=== PATIENT | male | born 1975 | race Caucasian/White ===

== ENCOUNTER 2019-06-28 08:10 | Inpatient (IN) ==
[2019-06-28] MEDS ORDERED: DUONEB (A & A) INH ONE (09:09)
[2019-06-28] MEDS ORDERED: MUCINEX DM PO ONE (09:09)
--- NOTE | 2019-06-28 09:38 | Diag Imaging Result Doc PS360 ---
EXAM: CHEST-2 VIEWS HISTORY: cough TECHNIQUE: Two views COMPARISON: 06/17/2019 FINDINGS: The lungs are well expanded. The heart is not enlarged. The vessels are not distended. There are small patchy infiltrates. No pleural effusions. IMPRESSION: Small patchy infiltrates Electronically signed by Chip Wade 06/28/2019 9:36 AM
--- NOTE | 2019-06-28 09:49 | PROVIDER DOCUMENTATION ---
HPI-General Adult - General Chief Complaint: Cold Symptoms Stated Complaint: COLD SX Time Seen by Provider: 06/28/19 09:02 Source: patient Allergies/Adverse Reactions: Patient Allergies Allergy/AdvReac Type Severity Reaction Status Date / Time Horse/Equine Containing Allergy Unknown Verified 06/28/19 08:48 Products Home Medications: Home Medication List Medication Instructions Recorded Confirmed Last Taken Type Benztropine [Cogentin] 1 mg PO BID 09/20/18 06/28/19 1 Year Ago History ~06/28/18 Lurasidone HCl [Latuda] 60 mg PO DAILY 09/20/18 06/28/19 1 Year Ago History ~06/28/18 Quetiapine E.r. [Seroquel Xr] 600 mg PO PRN PRN 09/20/18 06/28/19 1 Year Ago History ~06/28/18 D-Methorphan/PE/Acetaminophen [Day 1 ea PO QAM PRN 06/28/19 06/28/19 06/28/19 History Time Cold-Flu Softgel] Dextromethorphan HBr [Robitussin] 15 mg PO Q4H PRN 06/28/19 06/28/19 06/28/19 History Dm/Acetaminophen/Doxylamine [Night 1 ea PO QPM PRN 06/28/19 06/28/19 1 Day Ago History Time Cold-Flu Softgel] ~06/27/19 - History of Present Illness -Gen Adult Nature of Presenting Problems: Patient is a 43 yowm who complains of a non-productive cough and chest congestion x 1 week. Denies fever or any other complaints. Pt has been using his roommate's breathing treatments. Denies any hx of asthma or COPD. Denies any other complaints. Review of Systems - Adult - REVIEW OF SYSTEMS - ADULT Constitutional: reports: no symptoms reported. denies: chills, fever Eyes: reports: no symptoms reported Ears, Nose, Mouth & Throat: reports: no symptoms reported Cardiovascular: reports: no symptoms reported Respiratory: reports: see HPI Gastrointestinal: reports: no symptoms reported Genitourinary: reports: no symptoms reported Musculoskeletal: reports: no symptoms reported Integumentary: reports: no symptoms reported Neurological: reports: no symptoms reported Psychiatric: reports: no symptoms reported Endocrine: reports: no symptoms reported Hematologic/Lymphatic: reports: no symptoms reported Allergic/Immunologic: reports: no symptoms reported All Other Systems: Reviewed and Negative Past History - Adult - PAST MEDICAL HISTORY-ADULT Review of Records: reports: Nursing Assessment Review, Medications Reviewed Major Childhood Illnesses: reports: denies history Cardiovascular: reports: denies history Respiratory: reports: denies history Gastrointestinal: reports: denies history Obstetrical/Gynecological: reports: denies history Genitourinary: reports: denies history Musculoskeletal: reports: denies history Neurological: reports: denies history Psychiatric: reports: anxiety, psychiatric problems, schizophrenia Endocrine/Immune: reports: denies history Other Conditions: reports: denies history - PRIOR SURGERIES/PROCEDURES Surgical/Procedure History: reports: none - IMMUNIZATION STATUS Childhood Immunizations: See Nurse Assessment Flu Vaccine: See Nurse Assessment - FAMILY HISTORY Family History: reviewed, not pertinent - SOCIAL HISTORY Smoking: non-smoker Substance Use: marijuana Physical Exam-General - PHYSICAL EXAM-ADULT Initial Vital Signs Reviewed: Yes - CONSTITUTIONAL General Appearance: alert, no apparent distress. negative: lethargic, slow to respond - EYES Eyes: PERRL/EOMI, pink conjunctivae. negative: sclera injected, scleral icte [place], sunken eyes - HEAD, EARS, NOSE, MOUTH & THROAT HENMT: normocephalic/atraumatic, moist mucous membranes, normal ENT inspection, TMs normal, pharynx normal - NECK Neck: non-tender, full range of motion, supple, normal inspection - RESPIRATORY Respiratory: chest non-tender, lungs clear, normal breath sounds, no pleuratic chest pain, no respiratory distress, no accessory muscle use - CARDIOVASCULAR Cardiovascular: normal peripheral pulses, regular rate, rhythm, no gallop, no murmur - GASTROINTESTINAL (ABDOMEN) Abdominal Exam: normal bowel sounds, non tender, soft - MUSCULOSKELETAL Back Exam: normal inspection Extremity: normal range of motion, non-tender, normal gait, normal inspection - SKIN Integumentary: normal color, warm/dry. negative: cyanosis, diaphoresis, jaundice, mottled, pallor - NEUROLOGIC Neurologic: grossly normal, no motor/sensory deficits - PSYCHIATRIC Psych/Mental Status: normal mood/affect, normal thought content, normal thought process, oriented x 3 Progress - PLAN OF CARE/RESULTS Progress/Plan/Lab Results: Vital Signs - 8 hr 06/28/19 08:14 06/28/19 09:45 Temperature 99.0 F Pulse Rate 119 H 119 H Respiratory Rate 20 18 Blood Pressure 136/84 O2 Sat by Pulse Oximetry 93 L 06/28/19 08:45 Influenza Screen - Final Nasopharyngeal Orders Category Date Time Status CHEST-2 VIEWS [RAD] Stat Exams 06/28/19 09:09 Completed INFLUENZA SCREEN A/B Stat Lab 06/28/19 08:45 Completed Albuterol 2.5MG/Ipratrop 0.5MG [Duoneb (A & A)] Med 06/28/19 09:09 Discontin ued 3 ml INH NOW ONE Guaifenesin/Dm E.r. [Mucinex Dm] Med 06/28/19 09:09 Discontinued 1 each PO NOW ONE Aerosol Treatments Routine Oth 06/28/19 09:09 Completed Aerosol Treatments Stat Oth 06/28/19 09:09 Completed Result Diagrams: 06/28/19 10:25 06/28/19 10:25 - REASSESSMENT Reassessment #1 Time Reassessed: 13:11 Status: other (Pt states he is not feeling better after breathing tx, O2 sat 89% on room air after ambulating, admitting HPS paged.) - XRAY 1 XRAY Study: Chest ([facility] - [address] , [address] [address] [facility] - [address] [place] [address] Department of Imaging Patient: XAVIER LOWRYNEADM Date: 06/28/19MR#: [id number] : 1975ADM Status: REG ERAt#: [id number] Age/Sex: 43/MRoom/Bed: Loc: ED Ordering Physician: Zacarias Blake Family Physician: None,PCP Reason for Procedure: cough Signed EXAM: CHEST-2 VIEWS HISTORY: cough TECHNIQUE: Two views COMPARISON: 06/17/2019 FINDINGS: The lungs are well expanded. The heart is not enlarged. The vessels are not distended. There are small patchy infiltrates. No pleural effusions. IMPRESSION: Small patchy infiltrates Electronically signed by Chip Wade 06/28/2019 9:36 AM 06/28/19 0936 Interpreting Physician: Chip Wade MD Dictated Date/Time: 06/28/19 0935 cc: Zacarias Blake; None,PCP) - CONSULTS/PCP/HOSPITALIST Notification #1 *Consult/PCP/Hospitalist*: MIGUE Jaeger [employer] Time Discussed: 13:14 Reason/Comments: admission- pne, hypoxia Consult Disposition: Will see in ED, Admit Departure - Departure Date of Disposition Decision: 06/28/19 Time of Disposition Decision: 13:11 DIAGNOSIS: Hypoxia Pneumonia Qualifiers: Pneumonia type: due to unspecified organism Laterality: bilateral Lung location: unspecified part of lung Qualified Code(s): J18.9 - Pneumonia, unspecified organism Disposition: ADMITTED INPATIENT 09 Certified Medical Emergency: Emergent Condition: Stable Additional Instructions: ED Follow Up Instructions: Plenty of fluids and rest. Take all antibiotics. Use one of the resources provided to you below to make a follow up appt. Cool mist vaporizer in bedroom. You have been treated by a care provider in the Emergency Department. These instructions are being provided to you so you can have an understanding of how to care for yourself upon discharge. Upon discharge from the Emergency D epartment, you are responsible for making arrangements for follow-up care by a physician of your choice. Take all prescribed medications as directed. Return to the Emergency Department immediately for any new or worsening symptoms. You may call the Physician Referral phone number at [phone] to obtain a list of Physicians who are taking new patients.[facility] Qualifications for [facility]: * Live in [facility] * 18 - 64 years of age * Have no form of health insurance * Not covered by Medicaid, Medicare, Disability benefits or VA benefits * Meet the financial guidelines In order to be screened for services, patients must first call to answer a few questions and make a screening appt: Phone #: [phone] Services Provided by [facility]: * Primary Care: treatment for acute or chronic illness in adults * POOLROOM TABLE ATTENDANT exams * Blood work/ BP monitoring * Prescription meds (no controlled drugs) * Health education classes * Dental exams, x-rays and extractions Services that ARE NOT provided: * Orthopedic referrals * Pain management or narcotics * testing, control * Physicals or paperwork required by school, work or for legal proceedings * STD testing or treatment * Immunizations * Eye exams, hearing tests - Critical Care Note This patient required my direct & personal management of CC.: No Attestation - Physician/ JEAN Attestation Patient care was provided by Advanced Practice Provider:: Yes Advanced Practice Provider:: Zacarias Blake Advanced Practice Provider documentation review:: The Mid-level provider documentation, treatment plan and medical decision making was reviewed by the physician who agrees with all treatment and medical decision making by the MLP. The physician spent face to face time with patient:: No Advanced Practice Provider documentation review:: Supervising physician onsite and consulted in the evaluation and care of this patient. The physician did not have a face to face encounter with the patient.
[2019-06-28] MEDS ORDERED: ROCEPHIN 1 GM in NS 50 ML IV ONE (09:54)
[2019-06-28] MEDS ORDERED: NS 1,000 ML IV ONE (09:54)
[2019-06-28 11:16] LABS: BASO# 0.08 X1000 (0.0-0.2); BASO% 0.4 % (0.0-0.8); EOS# 0.05 X1000 (0.0-0.7); EOS% 0.3 % (0.0-10.0); HEMOGLOBIN 14.9 g/dL (14.0-18.0); IMM GRAN# 0.23 X1000 (0.0-0.04); IMM GRAN% 1.3 % (0.0-0.5); LYMPH# 1.38 X1000 (1.2-3.4); LYMPH% 7.6 % (20.5-51.1); MCH 27.6 PG (27-31); MCHC 33.9 g/dL (33-37); MCV 81.5 FL (81-99); MONO% 9.4 % (1.7-9.3); MPV 9.8 FL (7.4-10.4); NEUT# 14.72 X1000 (1.4-6.5); PLT 449 X1000 (130-400); RDW 13.2 % (11.5-14.5); WBC 18.16 X1000 (4.8-10.8)
[2019-06-28 11:23] LABS: AGAP 14; ALB/GLOB RATIO 0.9; ALBUMIN 3.7 g/dL (3.5-5.0); ALKALINE PHOSPHATASE 82 U/L (32-122); BUN 10 mg/dL (8-22); CALCIUM 9.3 mg/dL (8.8-10.2); CHLORIDE 101 mmol/L (98-107); COSMO 275; ESTIMATED GFR > 60; GLUCOSE 104 mg/dL (70-104); GOT 27 U/L (10-34); GPT 26 U/L (10-44); POTASSIUM 3.6 mmol/L (3.5-5.1); SODIUM 138 mmol/L (136-145); TCO2 23 mmol/L (25-35); TOTAL BILIRUBIN 0.85 mg/dL (0.20-1.00); TOTAL PROTEIN 7.7 g/dL (6.3-8.3)
[2019-06-28] MEDS ORDERED: DOXYCYCLINE PO ONE (13:10)
[2019-06-28] MEDS ORDERED: DUONEB (A & A) INH PRN (15:18)
[2019-06-28] MEDS: DUONEB (A & A) INH SCH ×3 (15:30→23:58)
[2019-06-28] MEDS ORDERED: SOLU-MEDROL IV SCH ×2 (15:30→20:00)
[2019-06-28] MEDS: NS 1,000 ML IV SCH (16:00)
[2019-06-28] MEDS: ATIVAN IV ONE ×2 (18:12→18:55)
--- NOTE | 2019-06-28 18:28 | HISTORY AND PHYSICAL ---
CHIEF COMPLAINT: Cough, congestion and postnasal drip. HISTORY OF PRESENT ILLNESS: This is a 43-year-old gentleman with a history of anxiety and schizophrenia. He presents to the emergency room complaining of nonproductive cough and chest congestion for 1 week. He states that his cough has been such that he is not able to sleep. He did use his roommate's nebulizers and states that he did have some relief for a short amount of time. He denied any hemoptysis, any fevers or chills. PAST MEDICAL HISTORY: Schizophrenia, anxiety. PAST SURGICAL HISTORY: Denies. SOCIAL HISTORY: He denies any alcohol or tobacco use. ALLERGIES: Equine containing products. HOME MEDICATIONS: He does not take any regular home medications. He has used DayQuil, NyQuil and Robitussin over the last 2 weeks with no relief in symptoms. REVIEW OF SYSTEMS: Discussed with patient with pertinent positives stated in the HPI. He denies any syncope, dizziness, chest pain, palpitations, any fevers or chills, nausea, vomiting, diarrhea, constipation, black or bloody vomitus or stools, hematuria, dysuria, frequency, urgency. PHYSICAL EXAMINATION: GENERAL: This is a 43-year-old gentleman who is sitting in the chair in the emergency room in no distress. VITAL SIGNS: Blood pressure is 123/70 with heart rate of 100, respirations are 20, temperature is 99 degrees, room air saturations 93 to 96 percent. HEENT: Pupils equal, round, react to light. EOMs are intact. Sclerae anicteric. Head is normocephalic, atraumatic. Mucous membranes are moist. NECK: Supple with trachea midline. CARDIOVASCULAR: Regular rate and rhythm. S1 and S2 appreciated. He has no murmur. Calves are nontender bilateral. PULMONARY: He has expiratory wheezes scattered throughout. Chest rises and falls symmetric with respiration. Chest wall is nontender to palpation. GASTROINTESTINAL: Abdomen soft, nontender, nondistended with bowel sounds in all 4 quadrants. LABS: WBC is 18 with hemoglobin 14.9, hematocrit 44, and platelets of 449,000. Sodium 138, potassium 3.6, BUN 10, creatinine 1 with a glucose of 104. Chest x-ray reveals small patchy infiltrates. ASSESSMENT AND PLAN: 1. Pneumonia. 2. Hypoxia. 3. History of schizophrenia with prior medications of Cogentin, Seroquel and Latuda which he stopped taking over a year ago. PLAN: The patient will be admitted to the hospital, place him on telemetry. Will order DuoNeb q.4 hours with q.2 hours p.r.n. with steroids to taper. We will continue Rocephin and doxycycline. Further antibiotics will be will be culture driven. His O2 saturation did drop to 87% while walking in the emergency room. We will give supplemental oxygen and monitor. Repeat a CBC and BMP in the morning. Plan was discussed with Dr. Be. Further treatments pending hospital course. Dictated by LILI Traylor for Miles Mukherjee MD cc: LILI Traylor MD
[2019-06-28] MEDS: ATIVAN IV PRN (18:53)
--- NOTE | 2019-06-28 19:18 | HISTORY AND PHYSICAL ---
ADDENDUM: The patient was seen and examined by my [id number]. All the laboratory, vital signs and images were reviewed. The patient presented to the emergency department with a chief complaint of cough that has been going on for at least 2 weeks, that has been worse during the night, but now recently has been day and night. He is also complaining of shortness of breath and severe anxiety. He is actually hypoxemic and tachycardic. His white blood cell count is elevated at 18,000 and he had small patchy infiltrates bilaterally on the chest x-ray. So, likely he has a multifocal pneumonia, probably atypical, so I will treat this patient with ceftriaxone and azithromycin as well. I will give him a couple doses of steroids since he has been wheezing a little bit mostly at the end of the expiration. As per the patient, he should be taking Seroquel and Latuda at home, but he cannot afford this medication will give him right now, since he is really anxious, a low dose of Ativan at 1 mg and then I will put it as needed. I will start this patient on hydroxyzine 50 mg 3 times a day to try to help him with the anxiety. PHYSICAL EXAMINATION: On my physical exam, this patient has decreased breath sounds bilaterally with some crepitus and rhonchi scattered, and faint expiratory wheezing. He denies any history of alcohol or tobacco use, but apparently he has been doing marijuana since he was 30 years old. The patient will be transferred to the medical floor. He will be getting breathing treatments, antibiotics, oxygen supplementation. I will give him Ativan as needed for severe anxiety and I will start this patient on Atarax. I agree with the rest of the nurse practitioner's assessment and plan. cc: Miles Mukherjee MD
[2019-06-28] MEDS: ZOFRAN IV PRN (21:18)
[2019-06-28] MEDS: ZITHROMAX 500 MG/NS 500 MG/250 ML IVPB IV SCH (21:18)
[2019-06-28] MEDS: ATARAX PO SCH (21:19)
[2019-06-29] MEDS ORDERED: SOLU-MEDROL IV SCH (04:00)
[2019-06-29] MEDS: DUONEB (A & A) INH SCH ×6 (04:09→23:31)
[2019-06-29] MEDS: NS 1,000 ML IV SCH ×3 (05:12→19:14)
[2019-06-29] MEDS: PRILOSEC PO SCH (06:32)
[2019-06-29 07:04] LABS: BASO# 0.01 X1000 (0.0-0.2); BASO% 0.1 % (0.0-0.8); HEMATOCRIT 42.6 % (42.0-52.0); HEMOGLOBIN 14.1 g/dL (14.0-18.0); IMM GRAN# 0.09 X1000 (0.0-0.04); LYMPH# 0.82 X1000 (1.2-3.4); LYMPH% 8.9 % (20.5-51.1); MCH 27.6 PG (27-31); MCHC 33.1 g/dL (33-37); MCV 83.4 FL (81-99); MONO# 0.24 X1000 (0.11-0.59); MONO% 2.6 % (1.7-9.3); MPV 9.8 FL (7.4-10.4); NEUT% 87.4 % (42.2-75.2); PLT 406 X1000 (130-400); RBC 5.11 XMIL (4.7-6.1); RDW 13.3 % (11.5-14.5); WBC 9.26 X1000 (4.8-10.8)
[2019-06-29] MEDS: TESSALON PO PRN ×2 (07:29→21:57)
[2019-06-29] MEDS: ATIVAN IV PRN ×2 (07:29→14:11)
[2019-06-29 07:43] LABS: AGAP 12; BUN 12 mg/dL (8-22); CALCIUM 9.4 mg/dL (8.8-10.2); CHLORIDE 107 mmol/L (98-107); COSMO 289; CREATININE 0.9 mg/dL (0.7-1.2); ESTIMATED GFR > 60; GLUCOSE 243 mg/dL (70-104); MAGNESIUM 2.1 mg/dL (1.5-2.7); PHOSPHORUS 2.9 mg/dL (2.7-4.5); POTASSIUM 3.6 mmol/L (3.5-5.1); SODIUM 141 mmol/L (136-145); TCO2 22 mmol/L (25-35)
[2019-06-29 07:50] LABS: LYMPHS 8 % (21-51); MONO 4 % (1-9); SEGS 87 % (42-75)
[2019-06-29] MEDS: ATARAX PO SCH ×4 (08:27→18:30)
[2019-06-29] MEDS: ROCEPHIN 1 GM in NS 50 ML IV SCH (08:28)
[2019-06-29] MEDS: ZOFRAN IV PRN ×2 (11:04→21:33)
--- NOTE | 2019-06-29 12:57 | PROGRESS NOTE ---
DATE: 06/29/2019 SUBJECTIVE: This patient seems to be feeling a little bit better compared with yesterday, but he is still complaining of shortness of breath and anxiety. As per the patient, his anxiety is a little bit better controlled with Atarax and Ativan, he received a dose yesterday and also today in the morning. Chest x-ray showed multifocal pneumonia. I will continue with the same management. He is on ceftriaxone and azithromycin. OBJECTIVE: Vital Signs: Temperature 97.6 degrees, pulse 62, respiratory rate 22, blood pressure 132/70, oxygen saturation 95% on 4 L of nasal cannula. HEENT: Head normocephalic, no trauma. PERRLA. Neck: Supple. No JVD. No masses. Central trachea. Chest: Decreased breath sounds globally with prolonged expiratory phase. He does have some expiratory wheezing and scattered rhonchi. Abdomen: Soft, nontender, nondistended. No hepatosplenomegaly. Extremities: No edema, no clubbing, no cyanosis. Neurological: The patient is awake, alert, he is oriented x3. He seems to be anxious. LABORATORY DATA: WBC 9.2, hemoglobin 14.1, hematocrit 42.6, platelets 406,000. Sodium 141, potassium 3.6, chloride 107, bicarbonate 22, BUN 12, creatinine 0.9, glucose 243, calcium 9.4. Phosphorus 2.9, magnesium 2.1. ASSESSMENT AND PLAN: 1. Pneumonia, likely multifocal. I will continue with antibiotics, breathing treatment, oxygen supplementation. 2. Hypoxemic respiratory failure, likely due to pneumonia. I do believe also there is a component of anxiety in this situation. Anyway, I will continue with oxygen supplementation. 3. History of schizophrenia with prior medications of Cogentin, Seroquel, and Latuda which he stopped taking a few months ago because he cannot afford that. He also has anxiety, so I will continue with the same management for now. I put this patient on Atarax and Ativan as needed. He seems to be feeling just a little bit better. 4. Leukocytosis, resolved. 5. Hyperglycemia, likely due to steroid use. cc: Miles Mukherjee MD
[2019-06-29] MEDS: SOLU-MEDROL IV SCH (13:34)
[2019-06-29] MEDS: ZITHROMAX 500 MG/NS 500 MG/250 ML IVPB IV SCH ×2 (18:30)
[2019-06-29] MEDS: CLARITIN PO SCH (21:33)
[2019-06-29] MEDS ORDERED: DUONEB (A & A) ONE (23:34)
[2019-06-30] MEDS: NS 1,000 ML IV SCH ×2 (00:12→21:29)
[2019-06-30] MEDS: SOLU-MEDROL IV SCH ×2 (00:13→14:49)
[2019-06-30] MEDS: DUONEB (A & A) INH SCH ×6 (03:46→23:12)
[2019-06-30] MEDS: PRILOSEC PO SCH ×2 (05:55→06:27)
[2019-06-30 07:28] LABS: HEMATOCRIT 40.5 % (42.0-52.0); HEMOGLOBIN 13.1 g/dL (14.0-18.0); MCH 27.1 PG (27-31); MCHC 32.3 g/dL (33-37); MCV 83.7 FL (81-99); MPV 9.8 FL (7.4-10.4); RBC 4.84 XMIL (4.7-6.1); RDW 13.7 % (11.5-14.5); WBC 12.97 X1000 (4.8-10.8)
[2019-06-30 08:03] LABS: AGAP 13; BUN 15 mg/dL (8-22); CHLORIDE 112 mmol/L (98-107); COSMO 296; CREATININE 0.8 mg/dL (0.7-1.2); ESTIMATED GFR > 60; GLUCOSE 213 mg/dL (70-104); IRON SATURATION 36 %; POTASSIUM 3.4 mmol/L (3.5-5.1); SODIUM 145 mmol/L (136-145); TCO2 20 mmol/L (25-35); TIBC 168 ug/dL; TOTAL IRON 61 ug/dL (53-167); UNBOUND IRON 107 ug/dL (112-346)
[2019-06-30] MEDS: ROCEPHIN 1 GM in NS 50 ML IV SCH (09:16)
[2019-06-30] MEDS: ATARAX PO SCH ×3 (09:16→18:10)
[2019-06-30] MEDS ORDERED: KLOR-CON PO ONE (10:02)
[2019-06-30] MEDS: ATIVAN IV PRN ×3 (12:01→22:43)
--- NOTE | 2019-06-30 14:20 | PROGRESS NOTE ---
DATE: 06/30/2019 SUBJECTIVE: This patient seems to be feeling better today. He is still complaining of some anxiety. I will continue with the Atarax and as needed Ativan. I will get a new chest x-ray in the morning. He will receive an extra dose of steroids today, and then I will stop it. I will continue with antibiotics and breathing treatment. OBJECTIVE: Vital Signs: Temperature 98 degrees, pulse 98, respiratory rate 18, blood pressure 123/91, oxygen saturation 94% on room air. HEENT: Head normocephalic. No trauma. PERRLA. Neck: Supple. No JVD. No masses. Central trachea. Chest: Decreased breath sounds globally with prolonged expiratory phase. He has some wheezing scattered, faint at the apex, scattered rhonchi. Abdomen: Soft, nontender, nondistended. No hepatosplenomegaly. Extremities: No edema, no clubbing, no cyanosis. Neurological: The patient is awake. He is alert. He is oriented x3. He seems to be anxious. LABORATORY DATA: WBC 12.9, hemoglobin 13.1, hematocrit 40.5, platelets 469,000. Sodium 145, potassium 3.4, chloride 112, bicarbonate 20, BUN 15, creatinine 0.8, glucose 213, calcium 9. Iron 61, ferritin 419. ASSESSMENT AND PLAN: 1. Pneumonia, multifocal. Continue with antibiotics, breathing treatment, oxygen supplementation. 2. Hypoxemic respiratory failure, likely due to pneumonia. I do believe there is also a component of anxiety in this situation. Anyway, I will continue with oxygen supplementation. 3. History of anxiety. He was placed on Seroquel and Latuda, which he stopped taking a few months ago because he cannot afford those medications. For his anxiety, I will continue with Atarax and Ativan as needed. 4. Leukocytosis, resolved. His leukocyte count increased a little bit compared with yesterday, likely due to steroids. 5. Hyperglycemia. This is also likely due to steroids. Upon admission, it was normal at 104. cc: Miles Mukherjee MD
[2019-06-30] MEDS: ZITHROMAX 500 MG/NS 500 MG/250 ML IVPB IV SCH (18:10)
[2019-06-30] MEDS: TESSALON PO PRN (20:36)
[2019-06-30] MEDS: CLARITIN PO SCH (20:36)
[2019-07-01] MEDS: DUONEB (A & A) INH SCH ×3 (04:04→12:10)
--- NOTE | 2019-07-01 07:30 | Diag Imaging Result Doc PS360 ---
EXAM: CHEST-2 VIEWS HISTORY: hypoxia TECHNIQUE: Two views COMPARISON: 06/28/2019 FINDINGS: The lungs are well expanded. The heart is not enlarged. The vessels are not distended. There are no infiltrates. No pleural effusions. IMPRESSION: No acute abnormality. Electronically signed by Chip Wade 07/01/2019 7:28 AM
[2019-07-01] MEDS: ATIVAN IV PRN ×2 (07:38→11:44)
[2019-07-01 07:45] LABS: AGAP 14; BUN 10 mg/dL (8-22); CALCIUM 9.4 mg/dL (8.8-10.2); CHLORIDE 108 mmol/L (98-107); COSMO 290; CREATININE 0.8 mg/dL (0.7-1.2); ESTIMATED GFR > 60; GLUCOSE 147 mg/dL (70-104); POTASSIUM 3.8 mmol/L (3.5-5.1); SODIUM 145 mmol/L (136-145); TCO2 23 mmol/L (25-35)
[2019-07-01 07:51] VITALS: BP 125/78
[2019-07-01] MEDS: ROCEPHIN 1 GM in NS 50 ML IV SCH (10:14)
[2019-07-01] MEDS: ATARAX PO SCH (10:14)
[2019-07-01] MEDS: NS 1,000 ML IV SCH (10:17)
[2019-07-01] MEDS: PRILOSEC PO SCH (10:20)
[2019-07-01] MEDS: TESSALON PO PRN (10:24)
--- NOTE | 2019-07-02 13:20 | DISCHARGE SUMMARY ---
ADMISSION DATE: 06/28/2019 DISCHARGE DATE: 07/01/2019 DISCHARGE DIAGNOSES: 1. Multifocal pneumonia. 2. Hypoxemic respiratory failure, resolved. 3. History of anxiety. 4. Leukocytosis, resolved. 5. Hyperglycemia due to steroids. HOSPITAL COURSE: A 43-year-old male with a past medical history of anxiety, possible schizophrenia, but not sure, presented to the emergency department complaining of nonproductive cough and chest congestion for one week. He was admitted on 06/28/2019. As per the patient, he has been coughing too much and he has not been able to sleep. He has been using his roommate's nebulizers and he has some relieve for a short amount of time on and off with breathing treatment. He denies any hemoptysis, any fever or chills. Upon my evaluation in the emergency department, I noted the patient was really anxious. Apparently he was on some treatment before but he has not been able to take it because of the cost and he cannot afford them. So, I admitted this patient with antibiotics, breathing treatment, steroids, oxygen supplementation, and I started this patient with hydroxyzine 50 mg p.o. t.i.d. This patient was improving on a daily basis and it looks like the hydroxyzine has been helping him a little bit. Today, I asked for a new x-ray and it did not show any acute abnormality. The lungs were expanded. The heart is not enlarged. The vessels are not distended and there are not infiltrates. He is feeling much better compared with admission. I do feel that this patient can be discharged safely to home. I do feel also that part of this breathing problem could be related to anxiety, so I have decided to contact Psychiatric Department today and he actually has been evaluated by them through telemedicine. They have faxed their recommendations and hopefully they will follow up with him as an outpatient. He seems to be more stable compared with admission. His friend, which is going to take care of him, is at the bedside and he is aware of all of this situation. PHYSICAL EXAMINATION: Vital Signs: Temperature 98.1 degrees, pulse 86, respiratory rate 19, blood pressure 125/78, oxygen saturation 96% on room air. HEENT: Head normocephalic, no trauma. PERRLA. Neck: Supple. No JVD. No masses. Central trachea. Chest: Decreased breath sounds globally with some prolongation of the expiratory phase but no wheezing today. Abdomen: Soft, nontender, nondistended. No hepatosplenomegaly. Extremities: No edema, no clubbing, no cyanosis. Neurological: The patient is awake and alert. He is oriented x3. He seems to be anxious but much better compared with admission. LABORATORY: Sodium 145, potassium 3.8, chloride 108, bicarbonate 23, BUN 10, creatinine 0.8, glucose 147, calcium 9.4. DISCHARGE MEDICATIONS: 1. Azithromycin 250 mg p.o. daily. 2. Tessalon 100 mg p.o. t.i.d. as needed for cough. 3. Omnicef 300 mg p.o. b.i.d. 4. Atarax 50 mg p.o. t.i.d. 5. Claritin 10 mg p.o. at bedtime 6. Medrol Dosepak as directed. 7. Omeprazole 20 mg p.o. daily. Time discharging this patient, 25 minutes. cc: Miles Mukherjee MD
== END 2019-07-01 13:17 | disposition home or self-care (01) | DRG 871 ==
LOC: ED 08:10 → EDIPHOLD 16:17 → 4N 17:58
PROVIDERS: ATTEND Internal Medicine